=== PATIENT | female | born 1995 | race Caucasian/White ===

== ENCOUNTER 2023-06-18 17:52 | Inpatient (IN) ==
[2023-06-18] MEDS ORDERED: LIDOCAINE 1% LOCAL 20 ML VIAL INFIL PRN (18:36)
[2023-06-18] MEDS ORDERED: OXYTOCIN 30 UNITS/NSS 30 UNITS/500 ML BAG IV PRN ×2 (18:36→23:11)
--- NOTE | 2023-06-18 18:39 | History & Physical Report ---
Date of Service June 18, 2023 Assessment & Plan (1) with 38 completed weeks gestation: Plan Ruptured now. fetus category one. suspect time of rom is abuot 5pm. Offered expectant management vs. starting pitocin now. She would like to walk and see what happens. Discussed that at 6 hours, if no significant change, would recommend pitocin. They are agreeable. History of Present Illness Chief Complaint: rom Primary Care Provider: RITO Wilhelm Patient is a 28yowf with iup at 38 3/7 weeks who presents with rom/lof. She notes she has had a mucousy d/c all day but at 5pm she had a gush of fluid. no vb. +fm. and Delivery Plans COVID POSITIVE 04/05/23 covid vaccine and booster x 2 Flu shot given 05/01/23 - [facility] Labs: Blood Type A Positive 11/28/22 Antibody Screen NEGATIVE 11/28/22 Hemoglobin 12.7 g/dl (12.0-16.0) 04/28/23 Hematocrit 37.5 % (37.0-47.0) 04/28/23 Mean Corpuscular Volume 85.9 fL (80.0-100.0) 11/28/22 Platelet Count 205 K/uL (130-400) 11/28/22 Rubella IgG Antibody Immune (Immune) 11/28/22 Rapid Plasma Reagin Nonreactive (Nonreactive) 11/28/22 Hepatitis B Surface Antigen. NON-REACTIVE (NON-REACTIVE) 11/28/22 Hepatitis C Antibody Neg (Neg) 04/21/21 Hepatitis C Antibody (EIA) NON-REACTIVE (NON-REACTIVE) 11/28/22 HIV (1&2) Ag and Ab Confirmation NON-REACTIVE (NON-REACTIVE) 11/28/22 Glucose 1 Hour 50 gm Load 132 mg/dl (70-130) H 01/16/23 OB Optional Labs: Chlamydia trachomatis RNA Not Detected (NotDetected) 11/28/22 Neisseria gonorrhoeae RNA Not Detected (NotDetected) 11/28/22 Labs Reviewed: low risk cfdna - sln neg horizon - sln declines AFP - sln gbs neg Allergies Allergy/AdvReac Type Severity Reaction Status Date / Time amoxicillin Allergy Unknown ITCHY Verified 06/14/23 12:16 bacitracin Allergy Unknown RASH Verified 06/14/23 12:16 Bactrim Allergy Unknown ITCHY Verified 03/31/22 10:55 clavulanic acid Allergy Unknown ITCHY Verified 06/14/23 12:16 neomycin Allergy Unknown RASH Verified 06/14/23 12:16 polymyxin B Allergy Unknown RASH Verified 06/14/23 12:16 sulfamethoxazole [Bactrim] Allergy Unknown ITCHY Verified 06/14/23 12:16 trimethoprim [Bactrim] Allergy Unknown ITCHY Verified 06/14/23 12:16 surgical glue Allergy Uncoded 06/14/23 12:16 Home Medications Medication Instructions Recorded Confirmed Type prenat.vits,jania,[id number] 1 tab PO DAILY 11/16/22 06/14/23 History Patient History Medical History Low grade mucinous neoplasm of appendix Surgical History S/P appendectomy History of right salpingo-oophorectomy For ovarian cyst Family History Grandfather (Paternal) Myocardial infarction Father Hypertension Afib Mother No problems noted. Other Dyslipidemia Denies family history of Ovarian cancer Prostate cancer Breast cancer Colorectal cancer Social History Smoking Status: Never smoker Second Hand Exposure: No; Do You Dip or Chew Tobacco: No; Hx Alcohol Use: Yes Alcohol type: beer, wine and hard liquor Alcohol Intake Frequency: 2-4 x/Month Hx Substance Use: No Preferred Language: Mongolian Communication Ability: Effective Visual Impairment: No Limitations Hearing Ability: Normal Roll Operator Required: No Beliefs That Will Affect Care: None marital status: marital status details: Seng (29) [phone] Current Living Situation: Spouse Current Living Situation Comment: lives with spouse, 2 dogs. current occupational status: employed current occupation: [employer] How many Children do You have: 0 Other Information That Helps Us Care for You: No Feels Safe at Home: Yes Safety Concerns: Feels Safe At This Time Childhood Exposure to Second-Hand Smoke: No Diet: regular Dental Care, Regularly: Yes Physical Activity Frequency: 1-2 Times per Week Seatbelt Use: always Sunscreen Use: Yes OB History G1 present [employer] History noncontributory Physical Exam Constitutional: WD/WN, vitals as above Gastrointestinal (Abdomen): soft, gravid, nt Psychiatric: A+Ox3, euthymic affect Genitourinary: cx--1.5/75/-2 sse--mucous/water d/c. +f/n toco--occasional contractions efm--130s with mod variability, accels to 160s, no decels Results & Data Vital Signs (Past 12 Hours) Vital Signs Temp Pulse Resp BP 06/18/23 18:10 92 H 135/79 06/18/23 18:06 36.5 C 18 Coding Level of Care Code None Diagnoses with 38 completed weeks gestation Z3A.38
[2023-06-18 19:57] LABS: Hematocrit (blood only) 40.1 % (37.0-47.0); Hemoglobin 13.5 g/dl (12.0-16.0); Mean Corpuscular Hemoglobin 30.3 pg (25.0-34.0); Mean Corpuscular Hgb Conc 33.7 g/dL (32.0-36.0); Mean Corpuscular Volume 89.9 fL (80.0-100.0); Mean Platelet Volume 12.5 fL (9.4-12.4); Platelet Count 153 K/uL (130-400); RDW Coefficient of Variation 13.1 % (11.5-14.5); RDW Standard Deviation 43.2 fL (36.4-46.3); Red Blood Count 4.46 M/uL (4.20-5.40); White Blood Count 12.49 K/ul (4.8-10.8)
--- NOTE | 2023-06-18 23:14 | Labor Progress Brief Note ---
Date of Service June 18, 2023 Subjective Noting some contractions, not too painful Assessment & Plan (1) with 38 completed weeks gestation: Plan Discussed continued expectant management vs. starting pit augmentation and ok with the latter. Fetus category one. epidural on demand. Admission and Anticipated Discharge Date Admission Date: June 18, 2023 Physical Exam Physical Exam: cx--2/90/-2 toco--q3-5min efm--120s with mod variability, accels to 150s, no decels Results & Data Vital Signs (Past 12 Hours) Vital Signs Temp Pulse Resp BP 06/18/23 22:56 77 124/73 06/18/23 18:10 92 H 135/79 06/18/23 18:06 36.5 C 18 Coding Level of Care Code None Diagnoses with 38 completed weeks gestation Z3A.38
[2023-06-19] MEDS ORDERED: ePHEDrine sulfate 50 MG/ML AMP ONE (01:07)
[2023-06-19] MEDS ORDERED: fentaNYL citrate PF 100 MCG/2 ML VIAL ONE (01:07)
[2023-06-19] MEDS ORDERED: SODIUM CHLORIDE 0.9% PF INJ 10 ML VIAL ONE (01:08)
[2023-06-19] MEDS ORDERED: LIDOCAINE 2%/EPINEPHRINE 1:200,000 20 ML PF ONE (01:08)
[2023-06-19] MEDS ORDERED: fentANYL 2 MCG/ML BUPIVacaine 0.125%-NSS 100ML BAG ONE (01:08)
[2023-06-19] MEDS ORDERED: BUPIVACAINE 0.25% PF 30 ML VIAL ONE (01:08)
[2023-06-19] MEDS ORDERED: ePHEDrine sulfate 50 MG/ML AMP IV PRN (01:29)
[2023-06-19] MEDS ORDERED: LIDOCAINE 2% MPF LOCAL 5 ML VIAL EPI PRN (01:29)
[2023-06-19] MEDS ORDERED: LIDOCAINE 2%/EPINEPHRINE 1:200,000 20 ML PF EPI STA (01:29)
[2023-06-19] MEDS ORDERED: fentANYL 2 MCG/ML BUPIVacaine 0.125%-NSS 100ML BAG EPI PRN (01:29)
[2023-06-19] MEDS ORDERED: ROPIVACAINE 0.5% PF 5 MG/ML 20 ML VIAL EPI PRN (01:29)
[2023-06-19] MEDS ORDERED: NALOXONE HCL 1 MG in SODIUM CHLORIDE 0.9% 1,000 ML IV PRN (01:29)
[2023-06-19] MEDS ORDERED: SODIUM CHLORIDE 0.9% PF INJ 10 ML VIAL EPI PRN (01:29)
[2023-06-19] MEDS ORDERED: BUPIVACAINE 0.25% PF 30 ML VIAL EPI PRN (01:29)
[2023-06-19] MEDS ORDERED: ONDANSETRON INJ 2 MG/ML 2 ML VIAL IV PRN (01:29)
[2023-06-19] MEDS ORDERED: BUPIVACAINE 0.25% PF 30 ML VIAL EPI STA (01:29)
[2023-06-19] MEDS ORDERED: SODIUM CHLORIDE 0.9% PF INJ 10 ML VIAL EPI STA (01:29)
[2023-06-19] MEDS ORDERED: diphenhydrAMINE 50 MG/ML VIAL IV PRN (01:29)
[2023-06-19] MEDS ORDERED: NALOXONE HCL 0.4 MG/1 ML VIAL/CARP IV PRN (01:29)
[2023-06-19] MEDS ORDERED: fentaNYL citrate PF 100 MCG/2 ML VIAL EPI PRN (01:29)
[2023-06-19] MEDS ORDERED: NALBUPHINE HCL 5 MG in SYRINGE 0 ML IV PRN (01:29)
[2023-06-19] MEDS ORDERED: fentaNYL citrate PF 100 MCG/2 ML VIAL EPI STA (01:29)
--- NOTE | 2023-06-19 01:29 | Anesthesiology Consultation ---
Date of Service June 19, 2023 Assessment & Plan (1) Encounter for pre-operative examination: Chart Review Chart Review: Patient NOT seen in Pre Admission Testing and Acceptable Risk for Labor Epidural Consults Requested none History Height/Weight Height: 5 ft 4 in Weight: 81.647 kg Allergies Allergy/AdvReac Type Severity Reaction Status Date / Time amoxicillin Allergy Unknown ITCHY Verified 06/14/23 12:16 bacitracin Allergy Unknown RASH Verified 06/14/23 12:16 Bactrim Allergy Unknown ITCHY Verified 03/31/22 10:55 clavulanic acid Allergy Unknown ITCHY Verified 06/14/23 12:16 neomycin Allergy Unknown RASH Verified 06/14/23 12:16 polymyxin B Allergy Unknown RASH Verified 06/14/23 12:16 sulfamethoxazole [Bactrim] Allergy Unknown ITCHY Verified 06/14/23 12:16 trimethoprim [Bactrim] Allergy Unknown ITCHY Verified 06/14/23 12:16 surgical glue Allergy Uncoded 06/14/23 12:16 Medications Home Medications Medication Instructions Recorded Confirmed Last Taken prenat.vits,jania,ney-[id number] 1 tab PO DAILY 11/16/22 06/14/23 Unknown Active Medications Generic Name Dose Route Start Last Admin Trade Name Freq PRN Reason Stop Dose Admin Lactated Ringer's 1,000 mls @ 125 mls/hr 06/18/23 18:36 06/19/23 01:10 Lr IV 06/20/23 18:35 999 mls/hr .Q8H PRN Infusion L&D Protocol Protocol Oxytocin 30 units in 500 mls @ 4 mls/hr 06/18/23 23:11 06/19/23 01:00 Pitocin IV 06/20/23 23:10 0.24 units/hr .Q24H PRN 4 mls/hr Labor Induction/Augmentation Titration Protocol 0.24 UNITS/HR Past Medical History Medical History Low grade mucinous neoplasm of appendix Past Family History Family History Grandfather (Paternal) Myocardial infarction Father Hypertension Afib Mother No problems noted. Other Dyslipidemia Denies family history of Ovarian cancer Prostate cancer Breast cancer Colorectal cancer Past Surgical History Surgical History S/P appendectomy History of right salpingo-oophorectomy For ovarian cyst Social History Smoking Status: Never smoker Do You Dip or Chew Tobacco: No Hx Alcohol Use: Yes Alcohol type: beer, wine and hard liquor Hx Substance Use: No Physical Exam Vital Signs Last Vital Signs Temp 97.9 F 06/18/23 22:56 Pulse 77 06/18/23 22:56 Resp 16 06/18/23 22:56 BP 124/73 06/18/23 22:56 Testing Laboratory Results 06/18/23 19:32
[2023-06-19] MEDS: LACTATED RINGER'S 1,000 ML IV PRN ×2 (04:49)
--- NOTE | 2023-06-19 06:54 | Delivery Summary ---
Vaginal Delivery Summary Date of Service June 19, 2023 Vaginal Delivery Summary and 2nd Degree LAC Pre-operative Diagnosis: at 38 4/7 weeks prom Post-operative Diagnosis: same Procedure: pit augmentation epidural second degree laceration and repair EBL: 350cc Anesthesia: epidural Procedure: The patient presented to labor and delivery with prom. Walked for a few hours and then pitocin started. She got an epidural and then progressed to c/c/+3. The patient pushed for about 20 min to deliver a viable male in shiloh position. The nose and mouth were bulb suctioned on the perineum and the rest of the infant was then delivered without difficulty. The baby was vigorous. The nose and mouth were again bulb suctioned and the was placed in the maternal abdomen for drying and attention. Cord was clamped and cut at one minute of life. Cord blood and segment obtained. Placenta delivered spontaneous, intact with a three vessel cord. Cervix/sulci/rectum were intact. A second degree perineal laceration was repaired in the normal standard fashion. Hemostasis obtained with dilute pitocin and fundal massage. Apgars were 8/9. Mother and baby doing well at the end of the delivery. [facility] Vaginal Delivery Charge Delivery Type Details: and 2nd Degree LAC
[2023-06-19] MEDS ORDERED: OXYTOCIN 30 UNITS/NSS 30 UNITS/500 ML BAG IV PRN (07:18)
[2023-06-19] MEDS ORDERED: bisacodyL 10 MG SUPP PR PRN (07:18)
[2023-06-19] MEDS ORDERED: BENZOCAINE 20% SPRY 85 APPLN/85 GM CAN EXT PRN (07:18)
[2023-06-19] MEDS ORDERED: oxyCODONE/ACETAMINOPHEN 5mg/325mg TAB PO PRN (07:18)
[2023-06-19] MEDS ORDERED: HYDROCORTISONE ACETATE 25 MG SUPP PR PRN (07:18)
[2023-06-19] MEDS ORDERED: ACETAMINOPHEN 325 MG TAB PO PRN (07:18)
[2023-06-19] MEDS ORDERED: DIPHTHERIA/TETANUS/PERTUSSIS Vaccine (Tdap, Age 7+yrs) 0.5mL SYR/VL IM ONE (07:18)
[2023-06-19] MEDS: PRENATAL VITAMIN 1 TAB PO SCH (09:32)
[2023-06-19] MEDS: DOCUSATE SODIUM 100 MG CAP PO SCH ×2 (09:32→19:53)
--- NOTE | 2023-06-19 09:54 | Anesthesia Procedure Note ---
Date of Service June 19, 2023 Anesthesia Post Epidural Note Vital Signs Vital Signs: Temp Pulse Resp BP Pulse Ox 37.1 C 104 H 18 111/64 95 06/19/23 07:03 06/19/23 09:18 06/19/23 09:33 06/19/23 09:18 06/19/23 07:04 Notes Mental Status: alert / awake / arousable Nausea / Vomiting: adequately controlled Pain: adequately controlled Airway Patency, RR, SpO2: stable & adequate BP & HR: stable & adequate Hydration State: stable & adequate Neuraxial Anesthesia: was administered and sensory block is resolving Anesthetic Complications: no major complications apparent and Pt Satisfied with anesthetic care Epidural: Removed without complications and With tip intact
[2023-06-19] MEDS: IBUPROFEN 600 MG TAB PO PRN ×2 (12:53→19:53)
[2023-06-20] MEDS: IBUPROFEN 600 MG TAB PO PRN ×3 (01:58→20:20)
[2023-06-20 06:25] LABS: Hematocrit (blood only) 33.3 % (37.0-47.0); Hemoglobin 11.5 g/dl (12.0-16.0)
--- NOTE | 2023-06-20 06:33 | Obstetrical Progress Note ---
Date of Service June 20, 2023 Assessment & Plan (1) care following vaginal delivery: Plan Doing well Encourage ambulation Pain control Plan for discharge tomorrow Admission and Anticipated Discharge Date Admission Date: June 18, 2023 Supervising Physician Co-Signing Physician Notes Resident Physician Supervision Note: I interviewed and examined the patient. Discussed with Dr. Foley and agree with findings and plan as documented in the note. Any exceptions or clarifications are listed here: PP1 s/p , doing well. VSS, exam benign and wnl. Continue routine pp care Documented By: Nikky Mercado MD Subjective 28 yo post day 1 s/p Ambulation: ambulating normally Voiding: no voiding problems Passing Gas:: Yes Diet Tolerance:: regular diet Lochia:: Small Feeding Type:: breast feeding Current Pain Level: Resting comfortably this AM in NAD. Denies JIMENEZ, CP, SOB, N/V/D, LE pain/swelling. Review of Systems Review of Systems: reviewed, per HPI Physical Exam Physical Exam: General: patient resting comfortably, NAD, non-toxic in appearance, answers questions appropriately. Skin: warm, dry, intact HEENT: NC/AT, anicteric sclera, conjunctiva without injection, moist mucus membranes. Heart: +S1/S2, regular, no m/r/g Lungs: equal air entry bilaterally, no rales/rhonchi/wheezes Abd: +BS, soft, NT/ND, uterine fundus firm at umbilicus Ext: warm, no clubbing/cyanosis or edema, Katt's neg. Neuro: speech intact, no facial droop, moving all extremities on command. Results & Data Vital Signs (Past 12 Hours) Vital Signs Temp Pulse Resp BP Pulse Ox O2 Del Method 06/20/23 04:40 36.7 C 77 16 96/56 L 98 Room Air 06/19/23 23:30 36.9 C 82 18 110/74 98 Room Air 06/19/23 19:35 36.7 C 93 H 20 109/69 97 Room Air Resident Activity Tracking Resident Involvement: Resident Care Provided Care Provided: Adult [facility] Medicine
[2023-06-20] MEDS: DOCUSATE SODIUM 100 MG CAP PO SCH ×2 (08:32→20:20)
[2023-06-20] MEDS: PRENATAL VITAMIN 1 TAB PO SCH (08:32)
[2023-06-20] MEDS ORDERED: bisacodyL 5 MG TABEC PO SCH (20:00)
[2023-06-21] MEDS: IBUPROFEN 600 MG TAB PO PRN ×2 (03:30→07:57)
--- NOTE | 2023-06-21 06:20 | Obstetrical Progress Note ---
Date of Service June 21, 2023 Assessment & Plan (1) care following vaginal delivery: Plan Doing well Encourage ambulation Pain control Discharge today Admission and Anticipated Discharge Date Admission Date: June 18, 2023 Supervising Physician Co-Signing Physician Notes Resident Physician Supervision Note: I was present with Dr. Foley during the history and exam. I discussed the case with the resident and agree with the findings and plan as documented in the note. Any exceptions or clarifications are listed here: PPD#2 doing well, no concerns. DC home. Documented By: Francy Lind, Subjective 28 yo post day 1 s/p Ambulation: ambulating normally Voiding: no voiding problems Passing Gas:: Yes Diet Tolerance:: regular diet Lochia:: Small Feeding Type:: breast feeding Current Pain Level: minimal Resting comfortably this AM in NAD. Denies JIMENEZ, CP, SOB, N/V/D, LE pain/swelling. Desires discharge today Review of Systems Review of Systems: reviewed, per HPI Physical Exam Physical Exam: General: patient resting comfortably, NAD, non-toxic in appearance, answers questions appropriately. Skin: warm, dry, intact HEENT: NC/AT, anicteric sclera, conjunctiva without injection, moist mucus membranes. Heart: +S1/S2, regular, no m/r/g Lungs: equal air entry bilaterally, no rales/rhonchi/wheezes Abd: +BS, soft, NT/ND, uterine fundus firm at umbilicus Ext: warm, no clubbing/cyanosis or edema, Katt's neg. Neuro: speech intact, no facial droop, moving all extremities on command. Results & Data Vital Signs (Past 12 Hours) Vital Signs Temp Pulse Resp BP Pulse Ox O2 Del Method 06/21/23 03:25 36.9 C 72 18 113/75 97 Room Air Resident Activity Tracking Resident Involvement: Resident Care Provided Care Provided: Adult Hospital Medicine
[2023-06-21] MEDS: PRENATAL VITAMIN 1 TAB PO SCH (07:57)
[2023-06-21] MEDS: DOCUSATE SODIUM 100 MG CAP PO SCH (07:57)
== END 2023-06-21 10:33 | disposition home or self-care (01) | DRG 807 ==
LOC: OPB 17:52 → 4S1 17:53 → 4E2 06-19 09:40